=== PATIENT | female | born 1980 | race American Indian/Alaskan Native ===

== ENCOUNTER 2017-06-03 08:19 | Emergency (ER) | payer SELFPAY ==
[2017-06-03 08:36] VITALS: BP 154/85
[2017-06-03] MEDS ORDERED: TESSALON PERLES PO ONE (11:45)
--- NOTE | 2017-06-03 11:51 | Emergency Department Report ---
- General Chief Complaint: Upper Respiratory Infection Stated Complaint: cough Time Seen by Provider: 06/03/17 11:23 Source: patient Mode of arrival: Ambulatory Limitations: No Limitations - History of Present Illness Initial Comments: This is a 36-year-old female nontoxic, well nourished in appearance, no acute signs of distress presents to the ED with c/o of productive cough, body aches, nasal congestion, rhinorrhea,chills x2 days. Patient stated this morning she had a episode of nausea with vomiting after cough so much but denies any nausea or vomiting in the ED. Patient describes vomit was food. Patient also describes productive cough as yellow/green mucus production. Patient denies any chest pain , shortness of breathe, fever, chills, headache, hemoptysis, nausea, vomiting, stiff neck, blurry vision, numbness or tingling. Patient states allergies to PCN. PMH includes asthma. Denies recent travels, car rides, or recent hospital stays. Denies calf pain or tenderness. MD Complaint: cough, rhinorrhea, nasal congestion, other (nausea/vomiting) -: days(s) (2) Severity: mild Severity scale (0 -10): 0 Consistency: constant Improves With: nothing Worsens With: nothing Associated Symptoms: rhinorrhea, nasal congestion, cough. denies: fever, chills , myalgias, diaphoresis, headache, sore throat, stiff neck, chest pain, shortness of breath, abdominal pain, nausea, vomiting, diarrhea, dysuria, rash, confusion, right sweats, weight loss, epistaxis, hoarseness, ear pain Treatments Prior to Arrival: none - Related Data Previous Rx's Medication Instructions Recorded Last Taken Type Azithromycin [Zithromax Z-KATLYN] 250 mg PO DAILY #6 tablet 06/03/17 Unknown Rx Benzonatate [Tessalon Perle] 100 mg PO Q8H #20 capsule 06/03/17 Unknown Rx Allergies Allergy/AdvReac Type Severity Reaction Status Date / Time Penicillins Allergy Hives Verified 06/03/17 08:31 ED Review of Systems ROS: Stated complaint: cough Other details as noted in HPI Constitutional: denies: chills, fever Eyes: denies: eye pain, eye discharge, vision change ENT: denies: ear pain, throat pain Respiratory: cough. denies: shortness of breath, wheezing Cardiovascular: denies: chest pain, palpitations Endocrine: no symptoms reported Gastrointestinal: denies: abdominal pain, nausea, diarrhea Genitourinary: denies: urgency, dysuria, discharge Musculoskeletal: denies: back pain, joint swelling, arthralgia Skin: denies: rash, lesions Neurological: denies: headache, weakness, paresthesias Psychiatric: denies: anxiety, depression Hematological/Lymphatic: denies: easy bleeding, easy bruising ED Past Medical Hx - Past Medical History Previous Medical History?: Yes Hx Asthma: Yes - Surgical History Past Surgical History?: Yes Additional Surgical History: Tonsilectomy - Social History Smoking Status: Never Smoker Substance Use Type: None - Medications Home Medications: Home Medications Medication Instructions Recorded Confirmed Last Taken Type Azithromycin [Zithromax Z-KATLYN] 250 mg PO DAILY #6 tablet 06/03/17 Unknown Rx Benzonatate [Tessalon Perle] 100 mg PO Q8H #20 capsule 06/03/17 Unknown Rx ED Physical Exam - General Limitations: No Limitations General appearance: alert, in no apparent distress - Head Head exam: Present: atraumatic, normocephalic, normal inspection - Eye Eye exam: Present: normal appearance, PERRL, EOMI. Absent: scleral icterus, conjunctival injection, nystagmus, periorbital swelling, periorbital tenderness Pupils: Present: normal accommodation - ENT ENT exam: Present: normal exam, normal orophraynx, mucous membranes moist, TM's normal bilaterally, normal external ear exam - Neck Neck exam: Present: normal inspection, full ROM. Absent: tenderness, meningismus, lymphadenopathy, thyromegaly - Respiratory Respiratory exam: Present: normal lung sounds bilaterally. Absent: respiratory distress, wheezes, rales, rhonchi, stridor, chest wall tenderness, accessory muscle use, decreased breath sounds, prolonged expiratory - Cardiovascular Cardiovascular Exam: Present: regular rate, normal rhythm, normal heart sounds. Absent: irregular rhythm, systolic murmur, diastolic murmur, rubs, gallop - GI/Abdominal GI/Abdominal exam: Present: soft, normal bowel sounds. Absent: distended, tenderness, guarding, rebound, rigid, diminished bowel sounds - Rectal Rectal exam: Present: deferred - Extremities Exam Extremities exam: Present: normal inspection, full ROM, normal capillary refill. Absent: tenderness, pedal edema, joint swelling, calf tenderness - Back Exam Back exam: Present: normal inspection, full ROM. Absent: tenderness, CVA tenderness (R), CVA tenderness (L), muscle spasm, paraspinal tenderness, vertebral tenderness, rash noted - Neurological Exam Neurological exam: Present: alert, oriented X3, CN II-XII intact, normal gait, reflexes normal - Psychiatric Psychiatric exam: Present: normal affect, normal mood - Skin Skin exam: Present: warm, dry, intact, normal color. Absent: rash ED Course Vital Signs 06/03/17 08:31 Temperature 98.4 F Pulse Rate 96 H Respiratory 20 Rate Blood Pressure 154/85 O2 Sat by Pulse 96 Oximetry - Reevaluation(s) Reevaluation #1: 06/03/17 11:52 Patient is speaking in full sentences with no signs of distress noted. ED Medical Decision Making - Lab Data Result diagrams: 06/03/17 11:49 06/03/17 11:49 - Medical Decision Making This is a 36-year-old female that presents with upper respiratory infection. Patient is stable and was examined by me. CBC, CMP, UA, serum test obtained with normal limits. Influenza negative swab. Chest x-ray obtained and dictated the radiologist with normal examination. Patient was notified of x -ray results with no further questions nor by the patient. Patient received Tessalon Perle in the ED due to symptoms of cough is improving. Patient discharged with azithromycin and Tessalon Perles. Patient was instructed Follow -up with a primary care doctor in 3-5 days or if symptoms worsen and continue return to emergency room as soon as possible. At time time of discharge, the patient does not seem toxic or ill in appearance. No acute signs of distress noted. Patient agrees to discharge treatment plan of care. No further questions noted by the patient. Critical care attestation.: If time is entered above; I have spent that time in minutes in the direct care of this critically ill patient, excluding procedure time. ED Disposition Clinical Impression: Upper respiratory infection Qualifiers: URI type: unspecified URI Qualified Code(s): J06.9 - Acute upper respiratory infection, unspecified Disposition: DC-01 TO HOME OR SELFCARE Is pt being admited?: No Does the pt Need Aspirin: No Condition: Stable Instructions: Benzonatate (By mouth), Azithromycin (By mouth), Upper Respiratory Infection (ED) Additional Instructions: Follow-up with a primary care doctor in 3-5 days or if symptoms worsen and continue return to emergency room as soon as possible. Prescriptions: Azithromycin [Zithromax Z-KATLYN] 250 mg PO DAILY #6 tablet Benzonatate [Tessalon Perle] 100 mg PO Q8H #20 capsule Referrals: PRIMARY CAREMD [Primary Care Provider] - 3-5 Days ALEE SIDDIQUI MD [Staff Physician] - 3-5 Days [facility] [Outside] - 3-5 Days [facility] [Outside] - 3-5 Days Forms: Work/School Release Form(ED)
[2017-06-03 12:04] LABS: Basophils % (Auto) 0.5 % (0.0-1.8); Hematocrit 41.8 % (30.3-42.9); Hemoglobin 13.9 gm/dl (10.1-14.3); Mean Corpuscular HGB Conc 33 % (30-34); Mean Corpuscular Hemoglobin 30 pg (28-32); Mean Corpuscular Volume 91 fl (79-97); Platelet Count 305 K/mm3 (140-440); Red Blood Count 4.62 M/mm3 (3.65-5.03); Red Cell Distribution Width 15.3 % (13.2-15.2); White Blood Count 9.2 K/mm3 (4.5-11.0)
[2017-06-03 12:23] LABS: Alanine Aminotransferase 15 units/L (7-56); Albumin/Globulin Ratio 1.1 %; Alkaline Phosphatase 64 units/L (35-129); Anion Gap 16 mmol/L; BUN/Creatinine Ratio 10; Blood Urea Nitrogen 8 mg/dL (7-17); Calcium 8.9 mg/dL (8.4-10.2); Carbon Dioxide 26 mmol/L (22-30); Chloride 101.1 mmol/L (98-107); Glucose 89 mg/dL (65-100); Lipase 24 units/L (13-60); Potassium 3.7 mmol/L (3.6-5.0); Sodium 139 mmol/L (137-145); Total Protein 7.7 g/dL (6.3-8.2)
[2017-06-03 12:47] LABS: Bacteria,Urine 1+ /HPF (Negative); Bilirubin,Urine NEG (Negative); Blood,Urine NEG (Negative); Ketones,Urine 20 mg/dL (Negative); Leukocyte Esterase,Urine NEG (Negative); Mucus,Urine 3+ /HPF; Nitrite,Urine NEG (Negative)
--- NOTE | 2017-06-03 13:33 | XRay Report ---
ROUTINE CHEST, TWO VIEWS: Cough. PA and lateral views demonstrate the heart and mediastinal contour to be of normal size and shape. The lungs are clear and fully expanded and the soft tissues and bony structures are normal. IMPRESSION: Normal study.
== END 2017-06-03 13:49 | disposition home or self-care (01) ==
LOC: ED 08:19
DX: J06.9 Acute upper respiratory infection, unspecified (principal); Z88.0 Allergy status to penicillin
CPT/HCPCS: 36415; 71020; 80053; 81001; 83690; 84703; 85025; 87400; 99284

== ENCOUNTER 2018-07-10 06:35 | Emergency (ER) | payer MEDICAID, MEDICARE ==
--- NOTE | 2018-07-10 07:56 | Emergency Department Report ---
ED Female HPI - General Chief complaint: Vaginal Bleeding Stated complaint: VAG BLEEDING, Source: patient Mode of arrival: Ambulatory Limitations: No Limitations - History of Present Illness Initial comments: This is a 37-year-old -[place] female who presents with vaginal bleeding and pelvic pain for one week. Patient states she took a home test 2 weeks ago which was positive. She is now experiencing intermittent spotting with wipes, abdominal cramping, and low back pain. Patient states she is using a heat pad to back which improved his symptoms. She also complains of vaginal discharge and frequency. Her last menstrual period was 06/01/2018, A3. She denies dysuria, chest pain, shortness of breath, nausea or vomiting. MD Complaint: vaginal bleeding, vaginal discharge, pelvic pain Onset/Timin -: week(s) Location: suprapubic Radiation: non-radiating Severity: mild Severity scale (0 -10): 4 Quality: cramping Consistency: intermittent Improves with: none Worsens with: none Are you Now?: Yes Last Menstrual Period: 06/01/18 EDC: 03/08/19 Associated Symptoms: vaginal discharge, vaginal bleeding, abdominal pain. denies: nausea/vomiting, fever/chills, headaches, loss of appetite, dysuria, hematuria, rash, seizure, shortness of breath, syncope, weakness - Related Data Sexually active: Yes : 9 Para: 4 A: 4 (3 abortions and 1 miscarriage) Previous Rx's Medication Instructions Recorded Last Taken Type Azithromycin [Zithromax Z-KATLYN] 250 mg PO DAILY #6 tablet 06/03/17 Unknown Rx Benzonatate [Tessalon Perle] 100 mg PO Q8H #20 capsule 06/03/17 Unknown Rx 21/Iron Fu/Folic Acid 1 each PO DAILY #30 tablet 07/10/18 Unknown Rx [ Complete Caplet] Allergies Allergy/AdvReac Type Severity Reaction Status Date / Time Penicillins Allergy Hives Verified 06/03/17 08:31 ED Review of Systems ROS: Stated complaint: VAG BLEEDING, Other details as noted in HPI Constitutional: denies: chills, fever Respiratory: denies: cough, shortness of breath, wheezing Cardiovascular: denies: chest pain, palpitations Gastrointestinal: abdominal pain. denies: nausea, diarrhea Genitourinary: frequency, discharge. denies: urgency, dysuria Neurological: denies: headache, weakness, paresthesias Psychiatric: denies: anxiety, depression ED Past Medical Hx - Past Medical History Hx Asthma: Yes - Surgical History Past Surgical History?: Yes Additional Surgical History: Tonsilectomy - Social History Smoking Status: Current Every Day Smoker Substance Use Type: None - Medications Home Medications: Home Medications Medication Instructions Recorded Confirmed Last Taken Type Azithromycin [Zithromax Z-KATLYN] 250 mg PO DAILY #6 tablet 06/03/17 Unknown Rx Benzonatate [Tessalon Perle] 100 mg PO Q8H #20 capsule 06/03/17 Unknown Rx 21/Iron Fu/Folic Acid 1 each PO DAILY #30 tablet 07/10/18 Unknown Rx [ Complete Caplet] ED Physical Exam - General Limitations: No Limitations General appearance: alert, in no apparent distress, obese - Respiratory Respiratory exam: Present: normal lung sounds bilaterally. Absent: respiratory distress - Cardiovascular Cardiovascular Exam: Present: regular rate, normal rhythm. Absent: systolic murmur, diastolic murmur, rubs, gallop - GI/Abdominal GI/Abdominal exam: Present: soft, tenderness (suprapubic tenderness), normal bowel sounds. Absent: distended, guarding, rebound, rigid, organomegaly, mass - External exam: Present: normal external exam Speculum exam: Present: vaginal discharge (malodorous thin white discharge). Absent: erythema, cervical discharge, vaginal bleeding, foreign body, tissue, laceration Bi-manual exam: Present: normal bi-manual exam - Back Exam Back exam: Absent: CVA tenderness (R), CVA tenderness (L) - Neurological Exam Neurological exam: Present: alert, oriented X3 - Psychiatric Psychiatric exam: Present: normal affect, normal mood - Skin Skin exam: Present: warm, dry, intact, normal color. Absent: rash ED Course Vital Signs 07/10/18 07/10/18 07:05 08:02 Temperature 97.9 F Pulse Rate 75 Respiratory 16 18 Rate Blood Pressure 123/78 O2 Sat by Pulse 100 99 Oximetry ED Medical Decision Making - Lab Data Result diagrams: 07/10/18 07:27 Lab Results 07/10/18 07/10/18 07/10/18 Range/Units 07:26 07:27 08:18 WBC 7.9 (4.5-11.0) K/mm3 RBC 4.49 (3.65-5.03) M/mm3 Hgb 14.3 (10.1-14.3) gm/dl Hct 42.1 (30.3-42.9) % MCV 94 (79-97) fl MCH 32 (28-32) pg MCHC 34 (30-34) % RDW 13.0 L (13.2-15.2) % Plt Count 378 (140-440) K/mm3 HCG, Quant 35697 H (0-4) mIU/mL Urine Color Yellow (Yellow) Urine Turbidity Clear (Clear) Urine pH 6.0 (5.0-7.0) Ur Specific [place] 1.018 (1.003-1.030) Urine Protein <15 mg/dl (Negative) mg/dL Urine Glucose (UA) Neg (Negative) mg/dL Urine Ketones Neg (Negative) mg/dL Urine Blood Neg (Negative) Urine Nitrite Neg (Negative) Urine Bilirubin Neg (Negative) Urine Urobilinogen < 2.0 (<2.0) mg/dL Ur Leukocyte Esterase Neg (Negative) Urine WBC (Auto) 1.0 (0.0-6.0) /HPF Urine RBC (Auto) 2.0 (0.0-6.0) /HPF U Epithel Cells (Auto) 2.0 (0-13.0) /HPF - Radiology Data Radiology results: report reviewed ULTRASOUND OB LESS THAN 14 WEEKS FETUS ULTRASOUND OB TRANSVAGINAL History: Vaginal bleeding, lower abdominal cramping Technique: Transabdominal and transvaginal ultrasound imaging Findings: The uterus measures 10 x 7 x 8 cm. An intrauterine gestational sac containing a yolk sac and small pole is identified. heart rate measures 117 beats per minute. [place]-rump length measures 8.1 mm which correlates with a 6 week 5 day . A small subchorionic hemorrhage is identified anterior to the gestational sac. The right ovary is unremarkable measuring 1.8 x 0.9 x 1.1 cm. The left ovary measures 3.9 x 2.7 x 2.8 cm. A 2.5 cm left ovarian cyst is identified. No pelvic fluid collection. Impression: Viable, single intrauterine as described. Small subchorionic hemorrhage. 2.5 cm left ovarian cyst. - Medical Decision Making This is a 37 y.o. female presents with vaginal bleeding during for 2 weeks. Patient was examined by [place]. Vitals are normal and patient is in no acute distress. Obtained labs and OB ultrasound. Wet prep and gonorrhea and chlamydia obtained via pelvic exam. There was less than or equal to 20% clue cells, negative Trichomonas or yeast. Gonorrhea and chlamydia pending. Quant 55,842 all other labs unremarkable. Viable, single intrauterine as described. Small subchorionic hemorrhage. 2.5 cm left ovarian cyst. Patient instructed to follow-up in 3-5 days for gonorrhea and chlamydia results. Return to ER if bleeding increase in 48 hours for repeat hCG. Referral to [facility] for continued care. Start complete. Patient discharged home in stable condition. Critical care attestation.: If time is entered above; I have spent that time in minutes in the direct care of this critically ill patient, excluding procedure time. ED Disposition Clinical Impression: Vaginal bleeding during , Threatened miscarriage Subchorionic hemorrhage Qualifiers: Fetus number: single or unspecified fetus Trimester: first trimester Qualified Code(s): O41.8X10 - Other specified disorders of amniotic fluid and membranes, first trimester, not applicable or unspecified Ovarian cyst Qualifiers: Laterality: left Qualified Code(s): N83.202 - Unspecified ovarian cyst, left side Disposition: DC- TO HOME OR SELFCARE Is pt being admited?: No Does the pt Need Aspirin: No Condition: Stable Instructions: Threatened Miscarriage (ED), (ED) Additional Instructions: Start taking vitamins daily. Remain on bed rest. Follow up with [facility] in 24-48 hours. Return to ER if increased vaginal bleeding, abdominal pain, and low back pain. Prescriptions: 21/Iron Fu/Folic Acid [ Complete Caplet] 1 each PO DAILY #30 tablet Referrals: [facility] [Provider Group] - 3-5 Days [facility] [Provider Group] - 3-5 Days Forms: Work/School Release Form(ED) Time of Disposition: 11:07
[2018-07-10 08:22] LABS: Hematocrit 42.1 % (30.3-42.9); Hemoglobin 14.3 gm/dl (10.1-14.3); Mean Corpuscular HGB Conc 34 % (30-34); Mean Corpuscular Volume 94 fl (79-97); Platelet Count 378 K/mm3 (140-440); Red Blood Count 4.49 M/mm3 (3.65-5.03)
[2018-07-10 08:31] LABS: Bilirubin,Urine NEG (Negative); Blood,Urine NEG (Negative); Color,Urine Yellow (Yellow); Protein,Urine <15 mg/dL mg/dL (Negative); Urobilinogen,Urine < 2.0 mg/dL (<2.0)
--- NOTE | 2018-07-10 10:54 | Ultrasound Report ---
ULTRASOUND OB LESS THAN 14 WEEKS FETUS ULTRASOUND OB TRANSVAGINAL History: Vaginal bleeding, lower abdominal cramping Technique: Transabdominal and transvaginal ultrasound imaging Findings: The uterus measures 10 x 7 x 8 cm. An intrauterine gestational sac containing a yolk sac and small pole is identified. heart rate measures 117 beats per minute. [place]-rump length measures 8.1 mm which correlates with a 6 week 5 day . A small subchorionic hemorrhage is identified anterior to the gestational sac. The right ovary is unremarkable measuring 1.8 x 0.9 x 1.1 cm. The left ovary measures 3.9 x 2.7 x 2.8 cm. A 2.5 cm left ovarian cyst is identified. No pelvic fluid collection. Impression: Viable, single intrauterine as described. Small subchorionic hemorrhage. 2.5 cm left ovarian cyst.
[2018-07-10 11:29] VITALS: BP 131/78
--- NOTE | 2018-07-11 10:34 | Event Note ---
Date: 07/11/18 Chart is reviewed, in addition to laboratory studies and ultrasound. The management of this patient was not specifically discussed with me. The case was not presented to me. I was available and present during the entire time that the patient was in the emergency room for consultation. I have ordered a call back for type and screen to determine RhoGAM necessity.
== END 2018-07-10 11:30 | disposition home or self-care (01) ==
LOC: ED 06:35
DX: O20.0 Threatened abortion (principal); O41.8X10 Other specified disorders of amniotic fluid and membranes, first trimester, not applicable or unspecified; O26.891 Other specified pregnancy related conditions, first trimester; N83.202 Unspecified ovarian cyst, left side; J45.909 Unspecified asthma, uncomplicated; F17.200 Nicotine dependence, unspecified, uncomplicated; Z3A.01 Less than 8 weeks gestation of pregnancy; Z88.0 Allergy status to penicillin
CPT/HCPCS: 36415; 76801; 76817; 81001; 84702; 85027; 87210; 87591; 99284